=== PATIENT | female | born 1985 | race Two or more races ===

== ENCOUNTER → 2022-06-18 | Emergency (ER) | payer MEDICAID ==
[~2022-06-18] VITALS: Ht 170.2 cm; Wt 84.8 kg
[~2022-06-18] MED LIST: IBUP-1955 PO
[2022-06-18 12:30] VITALS: BP 123/81
--- NOTE | 2022-06-18 12:30 | NUR ---
LEFT INDEX FINGER CRUSHED BY A DOOR LAST NIGHT
--- NOTE | 2022-06-18 13:56 | NUR ---
Patient discharged to home in stable condition. Written and verbal after care instructions given. Patient verbalizes understanding of instruction.
== END | disposition home or self-care (01) ==
LOC: ER 12:10
DX: S63.691A Other sprain of left index finger, initial encounter (principal); Z79.899 Other long term (current) drug therapy; W22.8XXA Striking against or struck by other objects, initial encounter; Y93.89 Activity, other specified; Y92.89 Other specified places as the place of occurrence of the external cause; Y99.8 Other external cause status
CPT/HCPCS: 73140-TC